=== PATIENT | female | born 1985 | race Two or more races ===

== ENCOUNTER 2019-10-20 09:09 | Emergency (ER) | payer SELFPAY ==
[~2019-10-20] VITALS: Ht 162.6 cm; Wt 70.0 kg
[2019-10-20 09:23] VITALS: BP 111/69
[2019-10-20 11:44] LABS: CLARITY URINE CLOUDY (CLEAR); COLOR URINE YELLOW (YELLOW); KETONES URINE NEGATIVE (NEGATIVE); LEUKOCYTE ESTERASE URINE 2+ (NEGATIVE); NITRITE URINE NEGATIVE (NEGATIVE); OCCULT BLOOD URINE NEGATIVE (NEGATIVE); PH URINE 8.5 (4.5-8.0); PROTEIN URINE NEGATIVE (NEGATIVE); SPECIFIC GRAVITY URINE 1.015 (1.005-1.030); UROBILINOGEN URINE 0.2 E.U./dL (0.2-1.0)
[2019-10-20] MEDS ORDERED: CEFTRIAXONE SODIUM 1 G/VIAL IM NR (12:15)
[2019-10-20] MEDS ORDERED: LIDOCAINE HCL/PF 1% 10 MG/ML 5ML VIAL IJ NR (12:15)
== END 2019-10-20 12:28 | disposition home or self-care (01) ==
LOC: ER 09:09
DX: N39.0 Urinary tract infection, site not specified (principal); J40 Bronchitis, not specified as acute or chronic; R51 Headache; M79.10 Myalgia, unspecified site; M54.9 Dorsalgia, unspecified; R68.83 Chills (without fever)
CPT/HCPCS: 81003; 81025; 87804; 96372; 99283; J0696; J3490